=== PATIENT | male | born 1945 | race Caucasian/White ===

== ENCOUNTER → 2021-07-19 13:08 | Outpatient (CLI) | payer OTHER, SELFPAY | PROVIDERS: Visit Provider Specialist | DX: R30.0 Dysuria (principal); R33.9 Retention of urine, unspecified; N39.0 Urinary tract infection, site not specified | CPT/HCPCS: 51798; 81002; 87077; 87086; 87186; 99215 ==

== ENCOUNTER → 2021-09-05 14:20 | Outpatient (CLI) | payer OTHER, SELFPAY | PROVIDERS: Referring Provider Specialist; Visit Provider Specialist | DX: R30.0 Dysuria (principal); N52.9 Male erectile dysfunction, unspecified; Z87.440 Personal history of urinary (tract) infections | CPT/HCPCS: 51798; 52000; 81002; 87077; 87086; 87186; 99214 ==